=== PATIENT | female | born 1960 | race Caucasian/White ===

== ENCOUNTER 2020-10-17 16:38 | Outpatient (CLI) | payer OTHER | END 2020-10-17 16:39 | disposition home or self-care (01) | LOC: COV 16:38 | PROVIDERS: ATTEND Internal Medicine | DX: Z01.812 Encounter for preprocedural laboratory examination (principal); Z20.822 Contact with and (suspected) exposure to COVID-19 ==

== ENCOUNTER 2022-10-08 09:33 | Outpatient (CLI) | payer OTHER ==
--- NOTE | 2022-10-15 11:58 | Mammography Report ---
BILATERAL DIGITAL SCREENING MAMMOGRAM 3D/2D: 10/08/2022 CLINICAL: Routine screening. Comparison is made to exams dated: 10/05/2021 mammogram, 09/28/2020 mammogram, 01/14/2019 mammogram, a nd 01/14/2018 mammogram - [facility]. There are scattered areas of fibroglandular density in both breasts (category b / 25%-50% glandular t issue). No significant masses, calcifications, or other findings are seen in either breast. There has been no significant interval change. IMPRESSION: NEGATIVE There is no mammographic evidence of malignancy. A 1 year screening mammogram is recommended. Based on the Tyrer Cuzick model (a risk assessment model) the patients lifetime risk is 9.3% and her 10 year risk is 4.3%. According to the ACR, ACS, and NCCN guidelines, an annual breast MRI exam gonzales g with mammogram is recommended if the patients lifetime risk is 20% or greater. This exam was interpreted at Station ID: [id number]. NOTE: For mammograms, a report in lay terms will be sent to the patient. Approximately 15% of breast malignancies will not be visualized mammographically. In the management of a palpable breast mass, a negative mammogram must not discourage biopsy of a clinically suspicious lesion. Electronically Signed By: Oleg gaines/devi:10/12/2022 11:54:50 letter sent: No_Letter ACR BI-RADS Category 1: Negative 3341F PARENCHYMAL PATTERN: (A) - The breast(s) demonstrate(s) scattered fibroglandular densities. BI-RADS CATEGORY: (1) - 1 Mammogram [id number] 1 year screening LATERALITY: (B)
== END 2022-10-08 09:34 | disposition home or self-care (01) ==
LOC: DI 09:33
PROVIDERS: ATTEND Nurse Practitioner Family
DX: Z12.31 Encounter for screening mammogram for malignant neoplasm of breast (principal)

== ENCOUNTER 2023-01-24 11:57 | Outpatient (CLI) | payer OTHER ==
--- NOTE | 2023-01-24 15:19 | XRAY Report ---
PROCEDURE: Chest 2 View X-Ray INDICATIONS: ABNORMAL BREATH SOUNDS TECHNIQUE: 2 views of the chest were acquired. COMPARISON: None. FINDINGS: Surgical changes and devices: None. Lungs and pleura: No pleural effusions or pneumothorax. Lungs are clear. Mediastinum: Mediastinal contours appear normal. Heart size is normal. Bones and chest wall: No suspicious bony lesions. S-shaped thoracolumbar spine scoliosis. Overlying soft tissues appear unremarkable. IMPRESSION: No acute cardiopulmonary process. Thoracolumbar spine scoliosis. Reviewed by: Candice Sol MD, PhD on 01/24/2023 3:18 PM PST Approved by: Candice Sol MD, PhD on 01/24/2023 3:18 PM [facility] Station ID: [id number]
== END 2023-01-24 11:58 | disposition home or self-care (01) ==
LOC: DI.S 11:57
PROVIDERS: ATTEND Registered Nurse
DX: R09.89 Other specified symptoms and signs involving the circulatory and respiratory systems (principal); M41.9 Scoliosis, unspecified